=== PATIENT | female | born 1990 | race American Indian/Alaskan Native ===

== ENCOUNTER 2018-09-16 12:02 | Emergency (ER) | payer MEDICAID ==
--- NOTE | 2018-09-16 12:08 | Emergency Department Report ---
Blank Doc - Documentation Documentation: This is a 27-year-old female that presents with left sided pelvic cramping. St ated is about 5 weeks . Denies any vaginal bleeding. This initial assessment/diagnostic orders/clinical plan/treatment(s) is/are subject to change based on patient's health status, clinical progression and re- assessment by fellow clinical providers in the ED. Further treatment and workup at subsequent clinical providers discretion. Patient/guardians urged not to elope from the ED as their condition may be serious if not clinically assessed and managed. Initial orders include: 1- Patient sent to [facility] for further evaluation and treatment 2- labs 3- UA
[2018-09-16 12:33] LABS: Basophils % (Auto) 0.5 % (0.0-1.8); Eosinophils # (Auto) 0.2 K/mm3 (0.0-0.4); Eosinophils % (Auto) 2.6 % (0.0-4.3); Hematocrit 39.4 % (30.3-42.9); Hemoglobin 13.7 gm/dl (10.1-14.3); Lymphocytes # (Auto) 1.8 K/mm3 (1.2-5.4); Lymphocytes % (Auto) 30.7 % (13.4-35.0); Mean Corpuscular HGB Conc 35 % (30-34); Mean Corpuscular Volume 89 fl (79-97); Monocytes # (Auto) 0.5 K/mm3 (0.0-0.8); Monocytes % (Auto) 8.7 % (0.0-7.3); Platelet Count 304 K/mm3 (140-440); Red Blood Count 4.43 M/mm3 (3.65-5.03)
[2018-09-16 12:44] LABS: Bacteria,Urine 1+ /HPF (Negative); Bilirubin,Urine NEG (Negative); Blood,Urine NEG (Negative); Color,Urine Yellow (Yellow); Mucus,Urine FEW /HPF
[2018-09-16 12:50] LABS: BUN/Creatinine Ratio 10; Blood Urea Nitrogen 6 mg/dL (7-17); Calcium 8.6 mg/dL (8.4-10.2); Hemolysis Index 8
--- NOTE | 2018-09-16 13:02 | Emergency Department Report ---
HPI - General Chief Complaint: Abdominal Pain Time Seen by Provider: 09/16/18 12:07 - HPI HPI: Room 3 The patient is a 27-year-old female presenting with chief complaint of abdominal pain. The patient states she is approximately 1.5 weeks but has not yet seen an VULCANIZING PRESS OPERATOR. The patient states for the past 1.5 weeks she's had intermittent cramping left lower quadrant abdominal pain. The patient states the pain increased this morning. Patient denies vaginal bleeding dysuria or hematuria. Patient denies fever nausea or vomiting Location: Left lower quadrant Duration: Intermittent 1.5 weeks Quality: Cramping Severity: Moderate Modifying factors: [see above] Context: [see above] Mode of transportation: [not driving] ED Past Medical Hx - Past Medical History Previous Medical History?: No - Surgical History Past Surgical History?: No - Family History Family history: no significant - Social History Smoking Status: Current Some Day Smoker (cigars) Substance Use Type: None (denies illicit drug use) ED Review of Systems ROS: Stated complaint: STOMACH CRAMPS Other details as noted in HPI Constitutional: denies: fever Eyes: denies: eye pain ENT: denies: throat pain Respiratory: no symptoms reported Cardiovascular: denies: chest pain Endocrine: no symptoms reported Gastrointestinal: abdominal pain. denies: nausea, vomiting Genitourinary: denies: hematuria Musculoskeletal: denies: back pain Neurological: denies: headache Physical Exam - Physical Exam Vital Signs: Vital Signs 09/16/18 12:08 Temperature 98.2 F Pulse Rate 106 H Respiratory 20 Rate Blood Pressure 132/70 O2 Sat by Pulse 99 Oximetry Physical Exam: GENERAL: The patient is well-developed well-nourished female lying on stretcher not appearing to be in acute distress. [] HEENT: Normocephalic. Atraumatic. Extraocular motions are intact. Patient has moist mucous membranes. NECK: Supple. Trachea midline CHEST/LUNGS: Clear to auscultation. There is no respiratory distress noted. HEART/CARDIOVASCULAR: Regular. There is no tachycardia. There is no gallop rub or murmur. ABDOMEN: Abdomen is soft, with mild discomfort to palpation in the suprapubic region. There is no rebound or guarding. Patient has normal bowel sounds. There is no abdominal distention. SKIN: There is no rash. There is no diaphoresis. NEURO: The patient is awake, alert, and oriented. The patient is cooperative. The patient has normal speech MUSCULOSKELETAL: There is no CVA tenderness. There is no evidence of acute injury. ED Course Vital Signs 09/16/18 12:08 Temperature 98.2 F Pulse Rate 106 H Respiratory 20 Rate Blood Pressure 132/70 O2 Sat by Pulse 99 Oximetry ED Medical Decision Making - Lab Data Result diagrams: 09/16/18 12:23 09/16/18 12:23 Laboratory Tests 09/16/18 09/16/18 09/16/18 12:20 12:23 12:23 WBC 5.9 RBC 4.43 Hgb 13.7 Hct 39.4 MCV 89 MCH 31 MCHC 35 H RDW 14.0 Plt Count 304 Lymph % (Auto) 30.7 [place] % (Auto) 8.7 H Eos % (Auto) 2.6 Baso % (Auto) 0.5 Lymph # 1.8 [place] # 0.5 Eos # 0.2 Baso # 0.0 Seg Neutrophils % 57.5 Seg Neutrophils # 3.4 Sodium 137 Potassium 3.4 L Chloride 100.5 Carbon Dioxide 25 Anion Gap 15 BUN 6 L Creatinine 0.6 L Estimated GFR > 60 BUN/Creatinine Ratio 10 Glucose 112 H Calcium 8.6 HCG, Quant Urine Color Yellow Urine Turbidity Clear Urine pH 6.0 Ur Specific [place] 1.024 Urine Protein 30 mg/dl Urine Glucose (UA) Neg Urine Ketones Neg Urine Blood Neg Urine Nitrite Neg Urine Bilirubin Neg Urine Urobilinogen 2.0 Ur Leukocyte Esterase Neg Urine WBC (Auto) 1.0 Urine RBC (Auto) 2.0 U Epithel Cells (Auto) 4.0 Urine Bacteria (Auto) 1+ Urine Mucus Few 09/16/18 12:23 WBC RBC Hgb Hct MCV MCH MCHC RDW Plt Count Lymph % (Auto) [place] % (Auto) Eos % (Auto) Baso % (Auto) Lymph # [place] # Eos # Baso # Seg Neutrophils % Seg Neutrophils # Sodium Potassium Chloride Carbon Dioxide Anion Gap BUN Creatinine Estimated GFR BUN/Creatinine Ratio Glucose Calcium HCG, Quant 9926 H Urine Color Urine Turbidity Urine pH Ur Specific [place] Urine Protein Urine Glucose (UA) Urine Ketones Urine Blood Urine Nitrite Urine Bilirubin Urine Urobilinogen Ur Leukocyte Esterase Urine WBC (Auto) Urine RBC (Auto) U Epithel Cells (Auto) Urine Bacteria (Auto) Urine Mucus - Radiology Data Radiology results: report reviewed (pelvic ultrasound), image reviewed (pelvic ultrasound) [facility] [address] [place] [address] Ultrasound Report Signed Patient: LORENA MEDRANO MR#: [id number] : 1990 Acct:[id number] Age/Sex: 27 / F ADM Date: 09/16/18 Loc: ED Attending Dr: Ordering Physician: MIKE PIMENTEL MD Date of Service: 09/16/18 Procedure(s): US OB transvaginal Accession Number(s): [id number] cc: MIKE PIMENTEL MD PROCEDURE: US OB TRANSVAGINAL TECHNIQUE: Transvaginal OB ultrasound was performed. Structures are visualized, documented and measured.. HISTORY: left- sided pelvic pain, COMPARISONS: Transabdominal OB ultrasound performed earlier today. FINDINGS: This report is generated using images from both the transabdominal and transvaginal OB ultrasound both of which were performed today. There is a gestational sac visualized within the endometrial canal with double decidual sign. A pole and yolk sac are visualized. No evidence of subchorionic hemorrhage. Fetus currently too small to evaluate anatomy. No gross abnormality is seen. heart rate of 67 bpm is detected. Amount of amniotic fluid appears normal. Shape of the sac appear normal. No uterine masses are identified. [place]-rump length measurement 2.8 mm corresponds to an age of 5 weeks 6 days. Heterogeneous echogenic nodule seen in the right ovary, one m easures 2 cm the other 1 cm. While these may represent hemorrhagic corpus luteum cyst of . Follow-up evaluation of the ovaries during recommended to ensure these resolve. Left ovary is unremarkable. Left ovary measures 2.1 x 1.3 x 1.8 cm. The right ovary 3.0 x 2.1 x 2.9 cm. Minimal nonspecific free fluid is seen in the cul-de-sac. IMPRESSION: Single living intrauterine gestation visualized. By crown-rump length measurement the estimated age is 5 weeks 6 days. Estimated date of confinement was not calculated. heart rate of 67 bpm is detected which indicates bradyc ardia. Heart rate under 100 [address]pm [address] the fetus at risk for intrauterine demise. Follow-up exam is recommended. Heterogeneous nodules seen in the right ovary, one of these likely represents hemorrhagic corpus luteum cyst of . Recommend follow-up evaluation of the ovaries during to ensure these resolve. This document is electronically signed by Niko Hammond MD., September 16 2018 03:42:27 PM ET Transcribed By: DFN Dictated By: NIKO HAMMOND MD Electronically Authenticated By: NIKO HAMMOND MD Signed Date/Time: 09/16/18 1544 DD/ 99 TD/TT: 09/16/18 1500 - Differential Diagnosis round ligament pain, ectopic , UTI Critical care attestation.: If time is entered above; I have spent that time in minutes in the direct care of this critically ill patient, excluding procedure time. ED Disposition Clinical Impression: Threatened Disposition: DC-01 TO HOME OR SELFCARE Is pt being admited?: No Does the pt Need Aspirin: No Condition: Stable Instructions: Abdominal Pain (ED) Additional Instructions: Return to the emergency department immediately should you develop worsening symptoms, fever, inability to tolerate food or liquid or any other concerns. Referrals: SANTHOSH MARQUEZ MD [Staff Physician] - [facility] (Dr. Marquez is an VULCANIZING PRESS OPERATOR. Please follow-up with him for further evaluation) Time of Disposition: 15:48
--- NOTE | 2018-09-16 15:43 | Ultrasound Report ---
PROCEDURE: US OB <= 14 WEEKS FETUS TECHNIQUE: Real-time transabdominal sonography of the uterus, placenta, amniotic fluid, adnexa, and fetus was performed with image documentation. Measurements were obtained to determine age/size. M-mode Doppler was used to document heartbeat. ADDITIONAL GESTATION: None. HISTORY: left-sided pelvic pain, COMPARISONS: None . FINDINGS: This report is generated using images from both the transabdominal and transvaginal OB ultrasound bot h of which were performed today. There is a gestational sac visualized within the endometrial canal with double decidual sign. A pole and yolk sac are visualized. No evidence of subchorionic hemorrhage. Fetus currently too small to evaluate anatomy. No gross abnormality is seen. heart rate of 67 bpm is detected. Amount of amniotic fluid appears normal. Shape of the sac appear normal. No uterine masses are identified. [place] n-rump length measurement 2.8 mm corresponds to an age of 5 weeks 6 days. Heterogeneous echogenic nodule seen in the right ovary, one measures 2 cm the other 1 cm. While these may represent hemorrhagic corpus luteum cyst of . Follow-up evaluation of the ovaries durin g recommended to ensure these resolve. Left ovary is unremarkable. Left ovary measures 2.1 x 1.3 x 1.8 cm. The right ovary 3.0 x 2.1 x 2.9 cm. Minimal nonspecific free fluid is seen in the cul -de-sac. IMPRESSION: Single living intrauterine gestation visualized. By crown-rump length measurement the estimated age i s 5 weeks 6 days. Estimated date of confinement was not calculated. heart rate of 67 bpm is detected which indicates bradycardia. Heart rate under [address] aces the fetus at risk for intrauterine demise. Follow-up exam is recommended. No gross abnorma lities of the fetus is visualized at this time. Heterogeneous nodule seen in the right ovary, one of these likely represents hemorrhagic corpus luteu m cyst of . Recommend follow-up evaluation of the ovaries during to ensure these r esolve. This document is electronically signed by Niko Hayden MD., September 16 2018 03:41:20 PM ET
--- NOTE | 2018-09-16 15:44 | Ultrasound Report ---
PROCEDURE: US OB TRANSVAGINAL TECHNIQUE: Transvaginal OB ultrasound was performed. Structures are visualized, documented and measu red.. HISTORY: left-sided pelvic pain, COMPARISONS: Transabdominal OB ultrasound performed earlier today. FINDINGS: This report is generated using images from both the transabdominal and transvaginal OB ultrasound bot h of which were performed today. There is a gestational sac visualized within the endometrial canal with double decidual sign. A pole and yolk sac are visualized. No evidence of subchorionic hemorrhage. Fetus currently too small to evaluate anatomy. No gross abnormality is seen. heart rate of 67 bpm is detected. Amount of amniotic fluid appears normal. Shape of the sac appear normal. No uterine masses are identified. [place] n-rump length measurement 2.8 mm corresponds to an age of 5 weeks 6 days. Heterogeneous echogenic nodule seen in the right ovary, one measures 2 cm the other 1 cm. While these may represent hemorrhagic corpus luteum cyst of . Follow-up evaluation of the ovaries durin g recommended to ensure these resolve. Left ovary is unremarkable. Left ovary measures 2.1 x 1.3 x 1.8 cm. The right ovary 3.0 x 2.1 x 2.9 cm. Minimal nonspecific free fluid is seen in the cul -de-sac. IMPRESSION: Single living intrauterine gestation visualized. By crown-rump length measurement the estimated age i s 5 weeks 6 days. Estimated date of confinement was not calculated. heart rate of 67 bpm is detected which indicates bradycardia. Heart rate under [address] aces the fetus at risk for intrauterine demise. Follow-up exam is recommended. Heterogeneous nodules seen in the right ovary, one of these likely represents hemorrhagic corpus lute um cyst of . Recommend follow-up evaluation of the ovaries during to ensure these resolve. This document is electronically signed by Niko Hayden MD., September 16 2018 03:42:27 PM ET
[2018-09-16 16:00] VITALS: BP 121/72
== END 2018-09-16 15:59 | disposition home or self-care (01) ==
LOC: ED 12:02
DX: O20.0 Threatened abortion (principal); O99.331 Smoking (tobacco) complicating pregnancy, first trimester; Z3A.01 Less than 8 weeks gestation of pregnancy; Z88.0 Allergy status to penicillin
CPT/HCPCS: 36415; 76801; 76817; 80048; 81001; 84702; 85025

== ENCOUNTER 2019-05-10 08:09 | Outpatient (CLI) | payer MEDICAID ==
[2019-05-10 08:25] VITALS: BP 127/77
== END 2019-05-10 09:11 | disposition home or self-care (01) ==
LOC: TRG 08:09
PROVIDERS: ATTEND Obstetrics & Gynecology
DX: O47.1 False labor at or after 37 completed weeks of gestation (principal); O99.333 Smoking (tobacco) complicating pregnancy, third trimester; Z3A.39 39 weeks gestation of pregnancy
CPT/HCPCS: 59025

== ENCOUNTER 2021-01-15 07:14 | Inpatient (IN) | payer MEDICAID ==
[2021-01-15] MEDS ORDERED: LACTATED RINGERS 1,000 ML ONE (07:34)
[2021-01-15] MEDS ORDERED: OXYTOCIN DRIP 30,000 MILLIUNITS/500 ML BAG IV ONE (07:35)
[2021-01-15] MEDS ORDERED: OXYTOCIN DRIP 30 UNITS/500 ML BAG IV SCH ×3 (08:00→15:00)
[2021-01-15] MEDS ORDERED: LACTATED RINGERS 1,000 ML IV SCH (08:00)
[2021-01-15] MEDS ORDERED: ePHEDrine SULFATE 50 MG/1 ML INJ IV PRN ×2 (08:02→08:30)
[2021-01-15] MEDS ORDERED: LIDOCAINE (2%) 20 MG/1 ML VIAL 20 ML MDV INFILTRATI SCH (08:30)
[2021-01-15] MEDS ORDERED: NALOXONE 0.4 MG/1 ML INJ IV PRN (08:30)
[2021-01-15] MEDS ORDERED: METHYLERGONOVINE MALEATE 0.2 MG/ML VIAL IM PRN (08:30)
[2021-01-15] MEDS ORDERED: CARBOPROST TROMETHAMINE 250 MCG/1 ML INJ IM PRN (08:30)
[2021-01-15] MEDS ORDERED: OXYTOCIN 10 UNIT/1 ML INJ IM PRN (08:30)
[2021-01-15] MEDS ORDERED: LOPERAMIDE 2 MG CAP PO PRN (08:30)
[2021-01-15] MEDS ORDERED: MINERAL OIL 30 ML ORAL LIQD PO PRN (08:30)
[2021-01-15] MEDS ORDERED: ACETAMINOPHEN 325 MG TAB PO PRN (08:30)
[2021-01-15] MEDS ORDERED: BUTORPHANOL 2 MG/1 ML INJ IV PRN ×2 (08:30)
[2021-01-15] MEDS ORDERED: TERBUTALINE 1 MG/1 ML INJ SUB-Q PRN (08:30)
--- NOTE | 2021-01-15 08:34 | Anesthesia Consultation ---
Anesthesia Consult and Med Hx Date of service: 01/15/21 - Airway Anesthetic Teeth Evaluation: Good ROM Head & Neck: Adequate Mental/Hyoid Distance: Adequate Mallampati Class: Class II Intubation Access Assessment: Probably Good - Pulmonary Exam CTA: Yes - Cardiac Exam Cardiac Exam: RRR - Pre-Operative Health Status ASA Pre-Surgery Classification: ASA2 Proposed Anesthetic Plan: Epidural - Pulmonary Hx Smoking: Yes Hx Asthma: No COPD: No Hx Pneumonia: No - Cardiovascular System Hx Hypertension: No - Central Nervous System Hx Seizures: No Hx Psychiatric Problems: No - Endocrine Hx Renal Disease: No Hx End Stage Renal Disease: No Hx Hypothyroidism: No Hx Hyperthyroidism: No - Hematic Hx Anemia: No Hx Sickle Cell Disease: No - Other Systems Hx Alcohol Use: No
[2021-01-15 08:50] LABS: Hematocrit 33.4 % (30.3-42.9); Hemoglobin 11.4 gm/dl (10.1-14.3); Red Blood Count 3.87 M/mm3 (3.65-5.03)
[2021-01-15 08:51] LABS: Mean Corpuscular HGB Conc 34 % (30-34); Mean Corpuscular Volume 87 fl (79-97); Platelet Count 256 K/mm3 (140-440); Red Cell Distribution Width 14.5 % (13.2-15.2)
[2021-01-15] MEDS ORDERED: fentaNYL-BUPIV 2 MCG/ML-0.125% 200 MCG/100 ML BAG EPIDURAL SCH (09:00)
[2021-01-15] MEDS ORDERED: NALOXONE 2 MG/2 ML INJ IV PRN (09:30)
[2021-01-15] MEDS ORDERED: ONDANSETRON 4 MG/2 ML INJ IV PRN ×2 (09:30→14:45)
[2021-01-15] MEDS ORDERED: miSOPROStol 200 MCG TAB PR PRN (09:30)
--- NOTE | 2021-01-15 09:34 | Progress Note ---
Labor Epidural - Labor Epidural Start Time: 08:15 Stop Time: 08:22 Performed by:: MARCELA REECE Procedure: Patient is requesting epidural for labor pain. H&P, and labs reviewed. Procedure explained, questions answered, consent obtained. Patient in sitting position with blood pressure cuff and pulse ox on and working. Timeout performed immediately before start of procedure. Sterile chlorahexadine 0.5% prep/drape. 3 mL 1% lidocaine skin wheal at L[3]-L[4]. 18-gauge VigLinktead epidural needle advanced to [id number] with saline at [7] cm. Epidural catheter advanced to [12] cm, negative aspiration for blood and csf, negative test dose 3 ml 1.5% lidocaine with epinephrine. Epidural dexmedetomidine [30] mcg administered. Sterile steri-strips and tegaderm applied, followed by tape reinforcement. Patient tolerated procedure well. Kelby TORRES
[2021-01-15] MEDS ORDERED: VANCOMYCIN/NS 1 GM/250 ML 1 GM/250 ML BAG IV SCH (10:00)
--- NOTE | 2021-01-15 12:17 | History and Physical Report ---
History of Present Illness Date of examination: 01/15/21 Date of admission: 01/15/21 07:39 Chief complaint: contractions, my water broke History of present illness: Pt is a 30 year old -[place] female ELIZABETH 01/16/21 at 39w6d who presents with regular contractions, leakage of green colored fluid, and advanced cervical dilation of 7 cm. She has had care at [facility] since 13 wks complicated by obesity, polyhydramnios, tobacco use and depression on Zoloft 50 mg PO daily. She is GBS positive. 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 (remote history ) Family/Genetic History: none Social history: no significant social history - Obstetrical History Expected Date of Delivery: 01/16/21 Actual Gestation: 39 Week(s) 6 Day(s) : 4 Para: 2 Hx # Term Pregnancies: 2 Number of Pregnancies: 0 Spontaneous Abortions: 0 Induced : 1 Number of Living Children: 2 Medications and Allergies Allergies Allergy/AdvReac Type Severity Reaction Status Date / Time Penicillins Allergy Unknown Verified 09/16/18 12:04 Active Meds: Active Medications Acetaminophen (Acetaminophen 325 Mg Tab) 650 mg PO Q4H PRN PRN Reason: Pain, Mild (1-3) Butorphanol Tartrate (Butorphanol 2 Mg/1 Ml Inj) 1 mg IV Q2H PRN PRN Reason: Pain, Moderate(4-6) LABOR PAIN Butorphanol Tartrate (Butorphanol 2 Mg/1 Ml Inj) 2 mg IV Q2H PRN PRN Reason: Pain , Severe (7-10) Carboprost Tromethamine (Carboprost Tromethamine 250 Mcg/1 Ml Inj) 250 mcg IM ONCE PRN PRN Reason: Uterine Bleeding Ephedrine Sulfate (Ephedrine Sulfate 50 Mg/1 Ml Inj) 10 mg IV Q2M PRN PRN Reason: Hypotension Oxytocin/Sodium Chloride (Pitocin/Ns 30 Unit/500ml) 30 units in 500 mls @ 2 mls/hr IV TITR NILSA; Protocol Last Admin: 01/15/21 10:15 Dose: 2 ml/hr, 2 mls/hr Documented by: Lactated Ringer's (Lactated Ringers) 1,000 mls @ 125 mls/hr IV DIRECT NILSA Last Admin: 01/15/21 08:51 Dose: 125 mls/hr Documented by: Oxytocin/Sodium Chloride (Pitocin/Ns 30 Unit/500ml) 30 units in 500 mls @ 40 mls/hr IV TITR NILSA; Protocol Vancomycin HCl (Vancomycin/Ns 1 Gm/250 Ml) 1 gm in 250 mls @ 167.007 mls/hr IV Q12H NILSA; Protocol Last Admin: 01/15/21 09:59 Dose: 167.007 mls/hr Documented by: Fentanyl/Bupivacaine/Sodium Chlor (Fentanyl-Bupiv 2 Mcg/Ml-0.125%) 200 mcg in 100 mls @ 12 mls/hr EPIDURAL TITR NILSA; Protocol Last Admin: 01/15/21 08:51 Dose: 12 mls/hr Documented by: Lidocaine (Lidocaine (2%) 20 Mg/1 Ml Vial 20 Ml Mdv) 20 ml INFILTRATI ONCE NILSA Stop: 01/16/21 08:29 Loperamide HCl (Loperamide 2 Mg Cap) 2 mg PO ONCE PRN PRN Reason: give with Hemabate Methylergonovine Maleate (Methylergonovine Maleate 0.2 Mg/Ml Vial) 0.2 mg IM ONCE PRN PRN Reason: Uterine Bleeding Mineral Oil (Mineral Oil 30 Ml Oral Liqd) 30 ml PO QHS PRN PRN Reason: Constipation Misoprostol (Misoprostol 200 Mcg Tab) 800 mcg RI ONCE PRN PRN Reason: Uterine Bleeding Naloxone HCl (Naloxone 2 Mg/2 Ml Inj) 0.2 mg IV Q5M PRN PRN Reason: Respiratory sedation Ondansetron HCl (Ondansetron 4 Mg/2 Ml Inj) 4 mg IV Q8H PRN PRN Reason: Nausea And Vomiting Oxytocin (Oxytocin 10 Unit/1 Ml Inj) 10 unit IM ONCE PRN PRN Reason: Uterine Bleeding Terbutaline Sulfate (Terbutaline 1 Mg/1 Ml Inj) 0.25 mg SUB-Q ONCE PRN PRN Reason: Hyperstimulation/Hypertonicity Review of Systems All systems: negative - Vital Signs Vital signs: Vital Signs Pulse Pulse Ox 87 100 01/15/21 08:47 01/15/21 08:47 Temp Pulse Resp BP Pulse Ox 58 L 112/63 100 01/15/21 12:15 01/15/21 12:15 01/15/21 12:13 - Physical Exam Breasts: Positive: deferred Abdomen: Positive: soft (obese, gravid ) Uterus: Positive: enlarged (gravid ) Extremities: Positive: edema (trace ) - Obstetrical FHR: auscultation normal Uterine Contraction Monitor Mode: External Cervical Dilatation: 10 Cervical Effacement Percentage: 100 station: +2 Uterine Contraction Pattern: Regular Uterine Tone Measurement Phase: Resting Uterine Contraction Intensity: Strong/Firm Results Result Diagrams: 01/15/21 08:04 All other labs normal. Assessment and Plan A: IUP at 39w6d SROM- thick meconium Transitional Labor Obesity GBS positive- PCN allergy P: Admit to labor and delivery Routine intrapartum care Clindamycin for GBS prophylaxis Anticipate vaginal delivery
--- NOTE | 2021-01-15 12:27 | Procedure Note ---
OB Delivery Note - Delivery Date of Delivery: 01/15/21 Surgeon: REE THOMAS Estimated blood loss: other (55 mL per QBL) - Vaginal Delivery presentation: compound Delivery position: OA Intrapartum events: PROM->1hr before delivery, meconium, decreased FHT variability Delivery induction: none Delivery augmentation: pitocin Delivery monitor: external FHT, external uterine Route of delivery: Delivery placenta: spontaneous Episiotomy: none Delivery laceration: other (Left periturethral laceration- hemostatic without repair ) Anesthesia: epidural - Infant A at 1 minute: 8 at 5 minutes: 9 Infant Gender: Male (3730g (8lb 4 oz) @ 1200 pm)
[2021-01-15] MEDS ORDERED: diphenhydrAMINE 25 MG CAP PO PRN (14:45)
[2021-01-15] MEDS ORDERED: WITCH HAZEL/ GLYCERIN PAD TP PRN (14:45)
[2021-01-15] MEDS ORDERED: BENZOCAINE/MENTHOL 20/0.5% TOP SPRAY 56 GM TP PRN (14:45)
[2021-01-15] MEDS ORDERED: PROMETHAZINE 25 MG TAB PO PRN (14:45)
[2021-01-15] MEDS ORDERED: PROMETHAZINE 25 MG RECT SUPP PR PRN (14:45)
[2021-01-15] MEDS ORDERED: HYDROcodone/ACETAMINOPHEN 5-325 MG TAB PO PRN (14:45)
[2021-01-15] MEDS ORDERED: MAGNESIUM HYDROXIDE (MOM) ORAL LIQD UDC PO PRN (14:45)
[2021-01-15] MEDS ORDERED: LANOLIN/ZINC/DIMETHICONE (LANSINOH) 7 GM TP PRN ×2 (14:45)
[2021-01-15] MEDS: IBUPROFEN 600 MG TAB PO SCH ×2 (16:15→22:08)
[2021-01-15] MEDS: FERROUS SULFATE 325 MG TAB PO SCH (22:09)
[2021-01-16 01:16] LABS: Hematocrit 29.5 % (30.3-42.9); Hemoglobin 10.1 gm/dl (10.1-14.3)
[2021-01-16] MEDS: FERROUS SULFATE 325 MG TAB PO SCH (10:39)
[2021-01-16] MEDS ORDERED: TETANUS,DIPH,PERTUSS(ACELL) VACCINE 0.5 ML SYRINGE IM ONE (12:30)
[2021-01-16] MEDS ORDERED: MEASLES, MUMPS & RUBELLA 12,500 UNIT/0.5 ML VACCINE SUB-Q ONE (12:30)
[2021-01-16] MEDS: IBUPROFEN 600 MG TAB PO SCH ×2 (12:31→17:46)
--- NOTE | 2021-01-16 13:37 | Discharge Summary ---
Providers - Providers Date of Admission: 01/15/21 07:39 Date of discharge: 01/16/21 Attending physician: REE THOMAS 01/15/21 14:45 Consult to Billing Administrator [CONS] Routine Reason For Exam: assistance with , SNS Primary care physician: REE THOMAS Hospitalization Reason for admission: active labor Delivery: Episiotomy: none Laceration: none Other procedures: none complications: none Discharge diagnosis: IUP at term delivered [place] baby: male Hospital course: Pt is a 30 year old -[place] female ELIZABETH 01/16/21 at 39w6d who presents with regular contractions, leakage of green colored fluid, and advanced cervical dilation of 7 cm. She has had care at [facility] since 13 wks complicated by obesity, polyhydramnios, tobacco use and depression on Zoloft 50 mg PO daily. She is GBS positive. Condition at discharge: Good Disposition: DC-01 TO HOME OR SELFCARE - Discharge Diagnoses (1) Status post normal vaginal delivery Status: Acute (2) Anemia Status: Acute Qualifiers: Anemia type: other cause Other causes of anemia: acute posthemorrhagic Qualified Code(s): D62 - Acute posthemorrhagic anemia Comment: Asymptomatic Increase iron rich foods into diet Plan - Discharge Medications Prescriptions: Ibuprofen [Motrin 600 MG tab] 600 mg PO Q8H 7 Days #21 tablet - Provider Discharge Summary Activity: routine, no sex for 6 weeks, no heavy lifting 4 weeks, no strenuous exercise Diet: other (Iron rich diet) Instructions: routine Additional instructions: [] Smoking cessation referral if applicable(refer to patient education folder for contact #) [] Refer to [facility] Booklet Call your doctor immediately for: * Fever > 100.5 * Heavy vaginal bleeding ( >1 pad per hour) * Severe persistent headache * Shortness of breath * Reddened, hot, painful area to leg or breast - Follow up plan Follow up: REE THOMAS MD [Primary Care Provider] - 6 Weeks
[2021-01-16 16:42] VITALS: BP 128/84
--- NOTE | 2021-01-16 21:13 | Post Anesthesia Evaluation ---
- Post Anesthesia Evaluation Patient Participated: Yes Airway Patent: Yes Stable Respiratory Function: Yes Nausea/Vomiting: No Temp > 96.8F: Yes Pain Manageable: Yes Adequeate Hydration: Yes Anesthesia Complications: No Block Receding Appropriately: Yes
== END 2021-01-16 18:38 | disposition home or self-care (01) | DRG 775 ==
LOC: TRG 07:14 → APU 07:15 → TRG 07:38 → LD 07:39 → OB 14:33
PROVIDERS: ADMIT Obstetrics & Gynecology; ATTEND Obstetrics & Gynecology
PROC: 10E0XZZ Delivery of Products of Conception, External Approach (ICD-10-PCS; principal; 2021-01-15)
PROC: 3E0R3BZ Introduction of Anesthetic Agent into Spinal Canal, Percutaneous Approach (ICD-10-PCS; 2021-01-15)
PROC: 00HU33Z Insertion of Infusion Device into Spinal Canal, Percutaneous Approach (ICD-10-PCS; 2021-01-15)
PROC: 3E0234Z Introduction of Serum, Toxoid and Vaccine into Muscle, Percutaneous Approach (ICD-10-PCS; 2021-01-16)
PROC: 3E0134Z Introduction of Serum, Toxoid and Vaccine into Subcutaneous Tissue, Percutaneous Approach (ICD-10-PCS; 2021-01-16)
DX: O42.92 Full-term premature rupture of membranes, unspecified as to length of time between rupture and onset of labor (principal); O77.0 Labor and delivery complicated by meconium in amniotic fluid; O99.214 Obesity complicating childbirth; E66.9 Obesity, unspecified; O99.344 Other mental disorders complicating childbirth; F32.9 Major depressive disorder, single episode, unspecified; O99.334 Smoking (tobacco) complicating childbirth; F17.200 Nicotine dependence, unspecified, uncomplicated; O40.3XX0 Polyhydramnios, third trimester, not applicable or unspecified; O99.824 Streptococcus B carrier state complicating childbirth; O99.02 Anemia complicating childbirth; D62 Acute posthemorrhagic anemia; Z20.822 Contact with and (suspected) exposure to COVID-19; O71.82 Other specified trauma to perineum and vulva; Z37.0 Single live birth; Z3A.39 39 weeks gestation of pregnancy; Z23 Encounter for immunization; Z88.0 Allergy status to penicillin
CPT/HCPCS: 36415; 85014; 85018; 85027; 86592; 86850; 86900; 86901; 96360; 96361; 96365; 96366; G0378; J2590; J3370; J7120; U0003